=== PATIENT | male | born 1980 | race Two or more races ===

== ENCOUNTER → 2022-05-26 | Outpatient (CLI) | payer BC ==
--- NOTE | 2022-05-26 10:56 | US ---
EXAMINATION TYPE: US abdomen complete DATE OF EXAM: 05/26/2022 COMPARISON: NONE CLINICAL HISTORY: R14.0 ABDOMINAL DISTENSION (GASEOUS). Pain and bloating in abd, superior to umbilic us will "swell" after patient eats TECHNIQUE: Multiple sonographic images of the abdomen are obtained. Additional grayscale and color Do ppler ultrasound imaging of the anterior abdominal wall superior to the umbilicus was obtained. FINDINGS: EXAM MEASUREMENTS: Liver Length: 18.4 cm Gallbladder Wall: 0.2 cm CBD: 0.5 cm Spleen: 9.9 cm Right Kidney: 12.1 x 4.9 x 4.2 cm Left Kidney: 10.3 x 4.7 x 5.7 cm Pancreas: wnl Liver: difficult to penetrate . No focal hepatic lesion. Gallbladder: wnl Evidence for sonographic Bose's sign: no CBD: wnl Spleen: wnl Right Kidney: wnl. No hydronephrosis, solid contour deforming mass, or shadowing calculi. Left Kidney: wnl. No hydronephrosis, solid contour deforming mass, or shadowing calculi. Upper IVC: wnl Abd Aorta: wnl *scanned area of pain near umbilicus and trace amount of fluid seen with no obvious herniation, no mo vement with valsalva. IMPRESSION: 1. No acute abdominal process. 2. No ultrasound evidence for hernia in the patient's region of pain near the umbilicus.
== END | disposition home or self-care (01) ==
LOC: RADUSWWP 08:49
PROVIDERS: ATTEND Internal Medicine Gastroenterology
DX: R14.0 Abdominal distension (gaseous) (principal)
CPT/HCPCS: 76700